=== PATIENT | male | born 1975 | race Two or more races ===

== ENCOUNTER → 2024-10-14 | Outpatient (CLI) | payer MEDICAID, SELFPAY ==
--- NOTE | 2024-10-14 16:00 | XR_ITS ---
Examination: CT pelvis without intravenous contrast. 2-D sagittal and coronal reconstructions. Date and time of exam:October 14, 2024 1611 hours INDICATIONS: Testicular pain pelvic pain 5 years CTDI: vol (mGy) :8.79 DLP: (mGycm) : 352 Technique: Multiple 3 mm axial sections of the pelvis have been obtained with the 64 slice high resolution scanner. 2-D sagittal and coronal reconstructions. Low dose protocols were performed. One or more of the following dose reduction techniques were used; automated exposure control, adjustment of the mA and/or KV according to patient size, use of iterative reconstruction technique. Findings: Negative for bowel obstruction Intact urinary bladder Transverse prostate dimension 4.7 cm No free fluid in the pelvis No pelvic lymphadenopathy 23 mm fat-containing left inguinal hernia Hips bones of the pelvis intact IMPRESSION: 23 mm fat-containing left inguinal hernia
== END | disposition home or self-care (01) ==
PROVIDERS: PCP Nurse Practitioner Family; Referring Provider Nurse Practitioner Family; Visit Provider Nurse Practitioner Family
DX: K40.90 Unilateral inguinal hernia, without obstruction or gangrene, not specified as recurrent (principal); Z98.52 Vasectomy status
CPT/HCPCS: 72192

== ENCOUNTER → 2024-11-05 | Outpatient (BNVA) | payer MEDICAID, SELFPAY | END | disposition home or self-care (01) | PROVIDERS: PCP Nurse Practitioner Family; Referring Provider Nurse Practitioner Family; Visit Provider Urology | DX: N40.1 Benign prostatic hyperplasia with lower urinary tract symptoms (principal); N13.8 Other obstructive and reflux uropathy; N50.9 Disorder of male genital organs, unspecified; Z87.440 Personal history of urinary (tract) infections; Z87.891 Personal history of nicotine dependence | CPT/HCPCS: 81003; 99212; G0463 ==

== ENCOUNTER → 2024-12-17 | Outpatient (BNVA) | payer MEDICAID, SELFPAY | END | disposition home or self-care (01) | PROVIDERS: PCP Nurse Practitioner Family; Referring Provider Nurse Practitioner Family; Visit Provider Urology | DX: N40.1 Benign prostatic hyperplasia with lower urinary tract symptoms (principal); R39.12 Poor urinary stream; K21.9 Gastro-esophageal reflux disease without esophagitis; Z87.891 Personal history of nicotine dependence | CPT/HCPCS: 51741; 51798 ==

== ENCOUNTER → 2024-12-23 | Outpatient (CLI) | payer MEDICAID, SELFPAY ==
--- NOTE | 2024-12-23 | XR_ITS ---
Examination: PA lateral chest 2 views Technique: Upright PA lateral chest 2 views Exam date and time: December 23, 2024 1133 hrs. Comparison June 08, 2009 Indications: Chest pain and palpable mass at the sternum 3 months Findings: Retrocardiac gastric hernia Normal heart size Lungs are clear No definite sternal mass Impression: No active disease Consider ultrasound soft tissue follow-up sternum
== END | disposition home or self-care (01) ==
PROVIDERS: PCP Internal Medicine; Referring Provider Internal Medicine; Visit Provider Internal Medicine
DX: R07.89 Other chest pain (principal)
CPT/HCPCS: 71046

== ENCOUNTER 2024-12-31 11:00 | Day surgery (SDC) | payer MEDICAID, SELFPAY ==
[2024-12-30 08:13] VITALS: BMI 32.8
[2024-12-30 09:41] LABS: Basophils % (Auto) 1 % (0-2.5); Eosinophils # (Auto) 0.1 Thou/mm3 (0.0-0.5); Eosinophils % (Auto) 2 % (0-10); Hematocrit 49.6 % (41.0-53.0); Hemoglobin 17.6 g/dL (13.5-16.0); Immature Granulocytes % (Auto) 0 % (0-0); Immature Granulocytes Auto 0.01 Thou/mm3 (0.00-0.00); Lymphocytes # (Auto) 2.3 Thou/mm3 (1.0-4.8); Lymphocytes % (Auto) 37 % (10-50); Mean Corpuscular HGB Conc 35.5 g/dl (31.0-37.0); Mean Corpuscular Hemoglobin 30.2 pg (25.0-35.0); Mean Corpuscular Volume 85 fL (80-100); Monocytes # (Auto) 0.5 Thou/mm3 (0.0-0.8); Monocytes % (Auto) 8 % (0-12); Neutrophils # (Auto) 3.3 Thou/mm3 (1.8-7.7); Neutrophils % (Auto) 52 % (37-80); Nucleated Red Blood Cell % 0 /100 WBC (0); Platelet Count 293 Thou/mm3 (140-440); RDW Standard Deviation 39.1 fL (35.1-43.9); Red Blood Count 5.82 Miln/mm3 (4.50-5.90); White Blood Count 6.3 Thou/mm3 (3.8-10.6)
[2024-12-30 09:52] LABS: Anion Gap 7 (7-16); BUN/Creatinine Ratio 9 Ratio (12-20); Blood Urea Nitrogen 13 mg/dL (9-23); Calcium 10.1 mg/dL (8.3-10.6); Carbon Dioxide 30.4 mMol/L (20.0-31.0); Chloride 106 mMol/L (98-107); Creatinine (Component) 1.5 mg/dL (0.6-1.3); Estimated Creatinine Clearance 76.3 mL/min (>60); Glucose 83 mg/dL (74-106); Osmolality,Calculated 284 (275-295); Potassium 4.1 mMol/L (3.4-5.1); Sodium 143 mMol/L (136-145); eGFR 57 See Note
[2024-12-31] VITALS (13 sets, daily range): BP systolic 101–141; BP diastolic 55–84; PULSE 60–77; RESP 14–22; TEMP 36.3–37; O2SAT 94–100; BMI 32.3
[2024-12-31] MEDS: RINGERS LACTATED 1000 ML 1,000 ML 20 ML IV (11:39)
--- NOTE | 2024-12-31 13:02 | SUR.PHASEI ---
pt arrived to PACU via gurney with oral airway present, breathing unlabored, dressing to left inguinal region clean, dry, and intact, report from Meseret RN, Manuel RN, and Magda MELO
--- NOTE | 2024-12-31 13:17 | SUR.PHASEI ---
report to Herman DENG
--- NOTE | 2024-12-31 13:19 | PD.SUROPNT ---
Date of Procedure 12/31/24 Pre Op Diagnosis Left inguinal hernia Post Op Diagnosis Indirect left inguinal hernia Procedure Repair of left inguinal hernia with mesh Findings Patient was noted to have indirect left inguinal hernia Procedure Description Patient brought into the operating room in supine position. After administration of general endotracheal anesthesia, patient's left groin was shaved, prepped and draped in standard surgical manner. The left inguinal crease was anesthetized with half percent Marcaine. An approximately 8 cm incision was made and dissection was carried to subcutaneous tissue. The Nathan's fascia was divided and the external oblique aponeurosis was opened towards the external ring. The hernia sac and the spermatic cord structures were from the posterior aspect of the external oblique aponeurosis at the level of pubic tubercle. The hernia sac was then meticulously dissected off the spermatic cord structures at the level of internal ring. Patient was noted to have indirect left inguinal hernia sac. The hernia sac was then ligated at the level of internal ring. The floor of inguinal canal was then reconstructed with ultra Pro proceed mesh. The mesh was secured with running 2-0 Prolene suture. The mesh secured medially to the pubic tubercle, superiorly into the conjoin tendon, inferiorly and to the shelving edge of inguinal ligament, the mesh was placed around the cord structures and tacked under the external oblique aponeurosis laterally. The area was copiously and thoroughly washed and irrigated, all the fluids were suctioned and the suction fluid returned clear. Hemostasis was adequate and satisfactory. External oblique aponeurosis was closed with running 2-0 Vicryl suture, and Nathan's fascia was closed with interrupted suture using 3-0 Vicryl. The incision was closed with 4-0 Monocryl in subcutaneous fashion. Instruments, needles and sponge counts were reported to be correct ?2. Patient tolerated the procedure well. He was extubated, breathing spontaneously and without difficulty and was transferred to postanesthesia care in stable condition. Anesthesia GETA and local Pathology / specimen Other (Hernia sac) Estimated Blood Loss 10 Condition Stable Disposition PACU Surgeon Kallie Dhillon MD Surgical Staff Operation Date: 12/31/24 13:45 Case Staff [employer]: Magda Harley RN First Assistant: Bernarda Ohara
--- NOTE | 2024-12-31 14:40 | SUR.PHASEII ---
pt able to tolerate jello without difficulty swallowing or nausea/vomiting.
--- NOTE | 2024-12-31 16:33 | SUR.PHASEII ---
pt awake and alert, breathing unlabored on room air. v/s stable. pt dressing to abd cdi, abd binder in place. pt able to ambulate to wheelchair with steady gait. d/c instructions given with in room, all questions answered. pt d/c via wheelchair with all belongings.
== END 2024-12-31 16:33 | disposition home or self-care (01) ==
PROVIDERS: PCP Nurse Practitioner Family; Referring Provider Surgery; Visit Provider Surgery
PROC: (CPT 49650; principal; 2024-12-31 13:30)
DX: K40.90 Unilateral inguinal hernia, without obstruction or gangrene, not specified as recurrent (principal)
CPT/HCPCS: 49650; 36415; 80048; 85025; A4217; A4649; C1781; J0690; J1100; J2250; J2371; J2405; J2704; J3490; J7120

== ENCOUNTER → 2025-01-28 | Outpatient (CLI) | payer MEDICAID, SELFPAY ==
--- NOTE | 2025-01-28 11:15 | XR_ITS ---
Examination: Ultrasound soft tissue sternum TECHNIQUE: Grayscale sonographic images soft tissue sternum Exam date and time: January 28, 2025, 11:15 AM INDICATIONS: Palpable sternal lump noticed beginning 2 months ago. FINDINGS: No cystic or solid mass at the area concern IMPRESSION: No cystic or solid mass at the area of concern, consider limited CT scan sternum without contrast follow-up
== END | disposition home or self-care (01) ==
LOC: CDIM 10:55
PROVIDERS: PCP Nurse Practitioner Family; Referring Provider Internal Medicine; Visit Provider Internal Medicine
DX: R22.2 Localized swelling, mass and lump, trunk (principal)
CPT/HCPCS: 76604

== ENCOUNTER → 2025-02-01 | Outpatient (BNVA) | payer MEDICAID, SELFPAY | END | disposition home or self-care (01) | PROVIDERS: PCP Nurse Practitioner Family; Referring Provider Nurse Practitioner Family; Visit Provider Urology | DX: N40.1 Benign prostatic hyperplasia with lower urinary tract symptoms (principal); N13.8 Other obstructive and reflux uropathy; K21.9 Gastro-esophageal reflux disease without esophagitis; Z87.891 Personal history of nicotine dependence | CPT/HCPCS: 76872 ==

== ENCOUNTER → 2025-02-09 | Outpatient (CLI) | payer MEDICAID, SELFPAY ==
--- NOTE | 2025-02-09 10:35 | XR_ITS ---
Examination: Forearm, left, 2 views. Technique: Forearm, AP, lateral 2 views Date and time of exam: February 09, 2025 1112 hours INDICATIONS: Forearm discomfort today, clinical diagnosis foreign body in the mid left forearm FINDINGS: Adequate bone density. No fracture or dislocation. No elbow effusion. No opaque foreign body IMPRESSION: No opaque foreign body
== END | disposition home or self-care (01) ==
LOC: CDIM 10:24
PROVIDERS: PCP Physician Assistant; Referring Provider Physician Assistant; Visit Provider Physician Assistant
DX: S50.859A Superficial foreign body of unspecified forearm, initial encounter (principal); X58.XXXA Exposure to other specified factors, initial encounter
CPT/HCPCS: 73090

== ENCOUNTER → 2025-07-05 | Outpatient (CLI) | payer MEDICAID, SELFPAY ==
--- NOTE | 2025-07-05 09:32 | XR_ITS ---
Examination: Duplex scan of the upper extremity, unilateral left Date and time of exam: July 05, 2025 0948 hours INDICATIONS: Left forearm pain and lump noticed beginning 5 months ago post blood withdrawal Technique: Duplex scan of the extremity veins using B-mode/grayscale imaging and Doppler spectral analysis and color flow Attention is directed to internal echogenicity, compression and augmentation involving these veins, color flow assessment, spectral analysis Findings: Major deep venous structures in the extremity demonstrate normal course and caliber. There is no evidence of deep vein thrombosis. Normal color flow and spectral analysis Impression: Negative for DVT..
== END | disposition home or self-care (01) ==
LOC: CDIM 09:23
PROVIDERS: Referring Provider Physician Assistant; Visit Provider Physician Assistant
DX: R22.32 Localized swelling, mass and lump, left upper limb (principal)
CPT/HCPCS: 93971

== ENCOUNTER → 2025-08-31 | Outpatient (CLI) | payer MEDICAID, SELFPAY ==
--- NOTE | 2025-08-31 | XR_ITS ---
Examination: Fingers, left hand 3 views Technique: AP, oblique, lateral views August 31, 2025, 1314 hours INDICATIONS: Injury to the hand 8 years ago with pain. Exam date and time: August 31, 2025, 1313 hours FINDINGS: Positive for 2 mm opaque foreign body in the soft tissue adjacent to the distal phalanx fourth digit Negative for osteomyelitis No fracture IMPRESSION: Positive for opaque foreign body as above
== END | disposition home or self-care (01) ==
PROVIDERS: PCP Nurse Practitioner Family; Referring Provider Nurse Practitioner Family; Visit Provider Nurse Practitioner Family
DX: S60.451A Superficial foreign body of left index finger, initial encounter (principal); X58.XXXA Exposure to other specified factors, initial encounter
CPT/HCPCS: 73140

== ENCOUNTER → 2025-09-29 | Outpatient (CLI) | payer MEDICAID, SELFPAY ==
--- NOTE | 2025-09-29 09:00 | XR_ITS ---
Examination: CT left elbow, without contrast. 2-D sagittal reconstructions. 2-D coronal reconstructions. 3-D reconstructions. Date and time of exam: September 29, 2025, 0906 hours INDICATIONS: Diagnosis foreign body left elbow, left elbow swelling mass and lump 5 months CTDI: vol (mGy): 5.53 DLP: (mGycm): 174 Technique: Multiple 1.25 mm axial sections of the left elbow have been obtained. 2-D sagittal and coronal reconstructions have been obtained. 3-D reconstructions have been obtained. Low dose protocols were performed. One or more of the following dose reduction techniques were used; automated exposure control, adjustment of the mA and/or KV according to patient size, use of iterative reconstruction technique. Findings: No mass in the subcutaneous fatty tissue or involving the musculature Distal humerus including humeral condylar regions intact Olecranon and ulnar notch proximal ulna radial head and neck intact No foreign body depicted IMPRESSION: No soft tissue mass noted No osseous abnormality No opaque foreign body Consider MRI elbow without contrast follow-up
== END | disposition home or self-care (01) ==
LOC: CCTX 08:55
PROVIDERS: PCP Nurse Practitioner Family; Referring Provider Nurse Practitioner Family; Visit Provider Nurse Practitioner Family
DX: R22.32 Localized swelling, mass and lump, left upper limb (principal)
CPT/HCPCS: 73200

== ENCOUNTER → 2025-10-08 | Outpatient (BNVA) | payer MEDICAID, SELFPAY | END | disposition home or self-care (01) | PROVIDERS: PCP Nurse Practitioner Family; Referring Provider Nurse Practitioner Family; Visit Provider Urology | DX: N40.1 Benign prostatic hyperplasia with lower urinary tract symptoms (principal); N13.8 Other obstructive and reflux uropathy; N50.9 Disorder of male genital organs, unspecified | CPT/HCPCS: 81003; 99212; G0463 ==